=== PATIENT | male | born 1990 | race Caucasian/White ===

== ENCOUNTER 2023-06-10 09:58 | Outpatient (CLI) | payer OTHER, SELFPAY ==
[2023-06-10 12:33] LABS: Potassium 4.6 mmoL/L (3.5-5.1)
[2023-06-10 12:34] LABS: Alanine Aminotransferase 31 U/L (12-78); Albumin Level 4.4 g/dl (3.5-5.0); Albumin/Globulin Ratio 1.8 (1.1-1.8); Alkaline Phosphatase 68 U/L (38-126); Aspartate Amino Transferase 26 U/L (17-59); Bilirubin,Total 0.4 mg/dl (0.2-1.3); Blood Urea Nitrogen 11 mg/dl (9-20); Calcium 9.7 mg/dl (8.4-10.2); Chloride 110 mmol/L (98-107); Chol/HDL Ratio 4.3 (1-3.5); Cholesterol 182 mg/dl (140-200); Estimated Glomerular Filt Rate 98 ml/min (>60); GFR (African American) 119 ML/MIN (>60); Globulin 2.5 g/dL (1.3-3.2); Glucose 104 mg/dl (74-100); HDL Cholesterol 42 mg/dl (40-60); Sodium 140 mmol/L (136-145); Total Protein,Serum 6.9 g/dl (6.3-8.2); Triglycerides 93 mg/dl (30-150); VLDL Cholesterol 19 mg/dL (0-40)
[2023-06-10 12:45] LABS: Direct LDL Cholesterol 101.79 mg/dL (100-129)
[2023-06-10 13:24] LABS: Vitamin B12 775 pg/mL (239-931)
[2023-06-10 13:32] LABS: Anion Gap 9.6 mEq/L (5-15)
[2023-06-10 13:33] LABS: Carbon Dioxide 25 mmol/L (22.0-30.0)
[2023-06-11 11:13] LABS: Thyroid Peroxidase Antibodies 14 IU/mL (0-34); Triiodothyronine (T3) Free 3.7 pg/mL (2.0-4.4)
[2023-06-13 16:57] LABS: Thyroglobulin Level <1.0 IU/mL (0.0-0.9)
[2023-06-21 14:24] LABS: Magnesium,RBC 5.3 mg/dL (3.7-7.0)
== END 2023-06-10 23:59 ==
LOC: LAB.DROPOF 09:58
PROVIDERS: PCP Nurse Practitioner Family; Visit Provider Nurse Practitioner Family
DX: R79.89 Other specified abnormal findings of blood chemistry (principal); K21.9 Gastro-esophageal reflux disease without esophagitis; I10 Essential (primary) hypertension; Z13.220 Encounter for screening for lipoid disorders; Z79.899 Other long term (current) drug therapy
CPT/HCPCS: 80053; 80061; 82607; 83735; 84443; 84481; 86376; 86800